=== PATIENT | female | born 1965 | race Caucasian/White ===

== ENCOUNTER 2017-04-03 18:20 | Emergency (ER) | payer OTHER ==
[2017-04-03 18:20] VITALS: BMI 26.1
[2017-04-03 18:26] VITALS: RESP 18; TEMP 99.5
[2017-04-03] MEDS ORDERED: Sodium Chloride 0.9% 1,000 ML IV STA (19:03)
--- NOTE | 2017-04-03 19:28 | ED PDOC ---
HPI: Abdomen Time Seen by Provider: 04/03/17 18:56 Chief Complaint (Nursing): Abdominal Pain Chief Complaint (Provider): Abdominal Pain History Per: Patient History/Exam Limitations: no limitations Onset/Duration Of Symptoms: Days (since last night, 04/02/2017.) Current Symptoms Are (Timing): Still Present Additional Complaint(s): 51 y/o female presents to the emergency department with a complaint of vomiting (non-bloody), diarrhea (non-bloody), and abdominal pain epigastric described as a burning sensation since last night, 04/02/2017. Denies new solids or liquids intake, chest pain, shortness of breath, headache, urinary symptoms, or medications for the relief of pain. Of note, patient was here before with similar symptoms such as anxiety, vomiting , diarrhea, epigastric abdominal pain, body aches, and ingestion of 5-6 pills of sertraline in August 2015 PMD: Dr. Ziyad Casarez MD Past Medical History Reviewed: Historical Data, Nursing Documentation, Vital Signs Vital Signs: Last Vital Signs Temp 99.5 F 04/03/17 18:24 Pulse 98 H 04/03/17 18:24 Resp 18 04/03/17 18:24 BP 137/80 04/03/17 18:24 Pulse Ox - Medical History PMH: Anxiety, Depression, Gastritis Denies: Diabetes, Hepatitis, HIV, HTN, Chronic Kidney Disease, Seizures, Sexually Transmitted Disease - Surgical History Surgical History: Cholecystectomy - Family History Family History: States: Unknown Family Hx - Social History Current smoker - smoking cessation education provided: No Alcohol: None Drugs: Denies - Home Medications Home Medications: Ambulatory Orders Medication Instructions Recorded Prednisone [Deltasone] 20 mg PO Q8 #20 tablet 06/22/16 - Allergies Allergies/Adverse Reactions: Allergies Allergy/AdvReac Type Severity Reaction Status Date / Time No Known Allergies Allergy Verified 04/03/17 18:24 Review of Systems ROS Statement: Except As Marked, All Systems Reviewed And Found Negative Cardiovascular: Negative for: Chest Pain Respiratory: Negative for: Shortness of Breath Gastrointestinal: Positive for: Vomiting, Abdominal Pain (described as burning) , Diarrhea. Negative for: Hematochezia, Hematemesis Genitourinary Female: Negative for: Dysuria, Frequency, Incontinence, Hematuria Neurological: Negative for: Headache Physical Exam - Reviewed Nursing Documentation Reviewed: Yes Vital Signs Reviewed: Yes - Physical Exam Appears: Positive for: Non-toxic, No Acute Distress Head Exam: Positive for: ATRAUMATIC, NORMAL INSPECTION, NORMOCEPHALIC Skin: Positive for: Normal Color, Warm, Dry Eye Exam: Positive for: Normal appearance ENT: Positive for: Normal ENT Inspection Neck: Positive for: Normal, Supple Cardiovascular/Chest: Positive for: Regular Rate, Rhythm. Negative for: Murmur Respiratory: Positive for: Normal Breath Sounds. Negative for: Accessory Muscle Use, Respiratory Distress Gastrointestinal/Abdominal: Positive for: Soft, Tenderness (Mild epigastric tenderness). Negative for: Guarding, Rebound Back: Positive for: Normal Inspection. Negative for: L CVA Tenderness, R CVA Tenderness Extremity: Positive for: Normal ROM. Negative for: Pedal Edema Neurologic/Psych: Positive for: Alert, Oriented - Laboratory Results Result Diagrams: 04/03/17 19:31 04/03/17 19:31 Interpretation Of Abn Labs: no acute - ECG ECG: Positive for: Interpreted By Me, Viewed By Me ECG Rhythm: Positive for: Normal QRS, Normal ST Segment, Sinus Rhythm Interpretation Of Abn EKG: same as old - Progress ED Course And Treament: 2017: Stable. AAOx3. Pain free. Tolerated PO. Active. Fu with pcp. Medical Decision Making Medical Decision Making: Time: 18:56 Initial impression: Abdominal Pain Initial plan: --Electrocardiogram STAT --COMP Metabolic Panel --Lipase STAT --Urine Dip --ED Urine --EKG-ED --CBC w/ differential --Pepcid 20 mg IVP --Sodium Chloride 1,000 ml IV 1,000 mls/hr --Ondansetron 4 mg IV --Reevaluation Scribe Attestation: Documented by Ilda Krueger, acting as a scribe for Chico Montero MD. Provider Scribe Attestation: All medical record entries made by the Scribe were at my direction and personally dictated by me. I have reviewed the chart and agree that the record accurately reflects my personal performance of the history, physical exam, medical decision making, and the department course for this patient. I have also personally directed, reviewed, and agree with the discharge instructions and disposition. Disposition - Clinical Impression Clinical Impression: Abdominal pain - Patient ED Disposition Is Patient to be Admitted: No Counseled Patient/Family Regarding: Studies Performed, Diagnosis, Need For Followup - Disposition Referrals: [facility] [Outside] - 04/06/17 Disposition: Routine/Home Disposition Time: 20:19 Condition: STABLE Additional Instructions: Return if not better in 3 days. Instructions: Acute Abdominal Pain (ED) Print Language: GEORGIAN
[2017-04-03 19:47] LABS: BASO % 0.2 % (0.0-2.0); EOS # 0.1 K/uL (0.0-0.7); EOS % 1.8 % (0.0-4.0); HEMATOCRIT 44.6 % (34.0-47.0); LYMPH # 1.1 K/uL (1.0-4.3); LYMPH % 15.2 % (20.0-40.0); MEAN CELL VOLUME 88.2 fl (81.0-99.0); MEAN CORPUSCULAR HEMOGLOBIN 29.2 pg (27.0-31.0); MEAN CORPUSCULAR HGB CONC 33.1 g/dL (33.0-37.0); MEAN PLATELET VOLUME 7.3 fl (7.2-11.7); MONO # 0.8 K/uL (0.0-0.8); MONO % 10.8 % (0.0-10.0); NEUT # 5.2 K/uL (1.8-7.0); NRBC % 0.1 % (0.0-0.0); RED CELL DISTRIBUTION WIDTH 14.4 % (11.5-14.5); WHITE BLOOD COUNT 7.2 K/uL (4.8-10.8)
[2017-04-03 19:57] LABS: ALB/GLOB RATIO 1.5 (1.0-2.1); ALKALINE PHOSPHATASE 99 U/L (38-126); ALT/SGPT 43 U/L (9-52); AST/SGOT 33 U/L (14-36); BILIRUBIN,TOTAL 0.9 mg/dl (0.2-1.3); BLOOD UREA NITROGEN 20 mg/dl (7-17); CALCIUM 8.7 mg/dL (8.4-10.2); CARBON DIOXIDE 29 mmol/L (22-30); CHLORIDE 100 mmol/L (98-107); GFR AFRICAN-AMERICAN > 60; GLUCOSE,RANDOM 100 mg/dL (65-105); LIPASE 94 U/L (23-300); POTASSIUM 3.8 MMOL/L (3.6-5.0); SODIUM 140 mmol/l (132-148); TOTAL PROTEIN 7.9 G/DL (6.3-8.2)
[2017-04-03 20:40] VITALS: BP 109/69; PULSE 92
--- NOTE | 2017-04-04 10:45 | CARD ---
APPROVED REPORT EKG Measurement Heart [id number] IL [id number] [id number] <Conclusion> Normal sinus rhythm Possible Left atrial enlargement Nonspecific ST abnormality Abnormal ECG
== END 2017-04-03 20:35 | disposition home or self-care (01) ==
LOC: H.ER 18:20
DX: R10.13 Epigastric pain (principal); R11.10 Vomiting, unspecified; R19.7 Diarrhea, unspecified

== ENCOUNTER 2018-07-16 19:08 | Emergency (ER) | payer OTHER ==
[2018-07-16 19:08] VITALS: BMI 26.1
[2018-07-16 20:14] VITALS: RESP 16
[2018-07-16 20:17] VITALS: O2SAT 98
--- NOTE | 2018-07-16 20:28 | ED PDOC ---
HPI: General Adult Time Seen by Provider: 07/16/18 20:21 Chief Complaint (Nursing): Shortness Of Breath Chief Complaint (Provider): left arm pain History Per: Patient (52 y/o female h/o cerebellar infarct here with complaint of left arm pain noted x few days worse with laying flat and moving neck. Notes pain as dull ache generalized but denies and associated chest pain. ) Past Medical History Reviewed: Historical Data, Nursing Documentation, Vital Signs Vital Signs: Last Vital Signs Temp 98.1 F 07/16/18 19:28 Pulse 74 07/16/18 20:17 Resp 16 07/16/18 20:17 BP 124/79 07/16/18 20:17 Pulse Ox 98 07/16/18 20:17 - Medical History PMH: Anxiety, Depression, Gastritis Denies: Diabetes, Hepatitis, HIV, HTN, Chronic Kidney Disease, Seizures, Sexually Transmitted Disease - Surgical History Surgical History: Cholecystectomy - Family History Family History: States: Unknown Family Hx - Home Medications Home Medications: Ambulatory Orders Medication Instructions Recorded Prednisone [Deltasone] 20 mg PO Q8 #20 tablet 06/22/16 Methylprednisolone [Medrol Dose 4 mg PO DAILY #21 mg 07/16/18 Pack (21 tabs)] diaZEpam [Valium] 5 mg PO Q8 PRN #8 tab 07/16/18 - Allergies Allergies/Adverse Reactions: Allergies Allergy/AdvReac Type Severity Reaction Status Date / Time No Known Allergies Allergy Verified 04/03/17 18:24 Review of Systems ROS Statement: Except As Marked, All Systems Reviewed And Found Negative Physical Exam - Reviewed Nursing Documentation Reviewed: Yes Vital Signs Reviewed: Yes - Physical Exam Appears: Positive for: Well, Non-toxic, No Acute Distress Head Exam: Positive for: ATRAUMATIC, NORMAL INSPECTION, NORMOCEPHALIC Skin: Positive for: Normal Color, Warm, DRY Eye Exam: Positive for: EOMI, Normal appearance, PERRL ENT: Positive for: Normal ENT Inspection Neck: Positive for: Normal, Painless ROM Cardiovascular/Chest: Positive for: Regular Rate, Rhythm Respiratory: Positive for: CNT, Normal Breath Sounds Gastrointestinal/Abdominal: Positive for: Normal Exam, Soft Back: Positive for: Normal Inspection, Other (tenderness along left lateral aspect of neck. Pain in arm reproduced with flexion of neck.) Extremity: Positive for: Normal ROM Neurologic/Psych: Positive for: Alert, Oriented - ECG O2 Sat by Pulse Oximetry: 98 - Progress ED Course And Treament: toradol 30 mg IM x 1 dose valium 5 mg po x 1 dose percocet 5/325 mg x 1 dose Disposition - Clinical Impression Clinical Impression: Cervical radiculopathy - Patient ED Disposition Is Patient to be Admitted: No - Disposition Referrals: [facility] [Outside] Disposition: Routine/Home Disposition Time: 21:50 Condition: FAIR Prescriptions: diaZEpam [Valium] 5 mg PO Q8 PRN #8 tab PRN Reason: Pain, Moderate (4-7) Methylprednisolone [Medrol Dose Pack (21 tabs)] 4 mg PO DAILY #21 mg Instructions: Radiculopathy (DC) Forms: [facility] ED School/Work Excuse Print Language: ARMENIAN
[2018-07-16] MEDS ORDERED: Oxycodone/Acetaminophen 5/325 mg Tab PO STA (21:49)
[2018-07-16] MEDS ORDERED: Oxycodone/Acetaminophen 5/325 mg Tab ONE (22:25)
[2018-07-16 23:01] VITALS: BP 119/78; PULSE 64; TEMP 98.7
== END 2018-07-16 22:35 | disposition home or self-care (01) ==
LOC: H.ER 19:08
DX: M54.12 Radiculopathy, cervical region (principal); Z86.73 Personal history of transient ischemic attack (TIA), and cerebral infarction without residual deficits
CPT/HCPCS: 96372; 99285; J1885

== ENCOUNTER 2018-12-04 12:15 | Emergency (ER) | payer SELFPAY ==
[2018-12-04 12:15] VITALS: BMI 26.1
[2018-12-04 12:25] VITALS: BP 127/79; RESP 16; TEMP 98.7; O2SAT 96
[2018-12-04] MEDS ORDERED: Promethazine/Cod 6.25mg-10mg/5ml Syr UD PO STA (12:40)
[2018-12-04] MEDS ORDERED: Albuterol 0.083% Inhal Sol (2.5 mg/3 mL) UD INH STA (12:40)
--- NOTE | 2018-12-04 12:52 | ED PDOC ---
HPI: Chest Pain Time Seen by Provider: 12/04/18 12:27 Chief Complaint (Nursing): Cough, Cold, Congestion Chief Complaint (Provider): Cough, Cold, Congestion History Per: Account Financial Manager (RN: Breanne) History/Exam Limitations: no limitations Onset/Duration Of Symptoms: Days (x3 months) Current Symptoms Are (Timing): Still Present Additional Complaint(s): Philly Landers is a 53 year old female with a past medical history of anxiety, gastritis, and depression, who presents to the emergency department complaining of having a constant cough, onset x3 months. Patient states that she has been drinking lemon tea with john at home for the cough but has had no relief of symptoms. She further reports that yesterday after brushing her teeth, she coughed out thick blood. Due to the longevity of the cough and coughing up blood, she decided to come in to the ED today. She further reports that she has mid sternal chest pain but only when she is coughing. Patient denies seeing her PMD recently. She denies having any history of DVT, PE, recent surgery, prolonged limb immobilzation, hormonal therapy, leg pain, leg swelling, palpitations, fever, chills, or recent travel. PMD: Ziyad Casarez - Risk Factors PE Risk Factors: Neg: Extremity Immobilization/Fx, Decreased Mobilty /Activity, Previous DVT, Previous PE Past Medical History Reviewed: Historical Data, Nursing Documentation, Vital Signs Vital Signs: Last Vital Signs Temp 98.7 F 12/04/18 12:22 Pulse 93 H 12/04/18 12:22 Resp 16 12/04/18 12:22 BP 127/79 12/04/18 12:22 Pulse Ox 96 12/04/18 12:22 - Medical History PMH: Anxiety, Depression, Gastritis Denies: Diabetes, Hepatitis, HIV, HTN, Chronic Kidney Disease, Seizures, Sexually Transmitted Disease - Surgical History Surgical History: Cholecystectomy - Family History Family History: States: No Known Family Hx - Social History Current smoker - smoking cessation education provided: No Ex-Smoker (has not smoked in the last 12 months): No Drugs: Denies - Home Medications Home Medications: Ambulatory Orders Medication Instructions Recorded Prednisone [Deltasone] 20 mg PO Q8 #20 tablet 06/22/16 Methylprednisolone [Medrol Dose 4 mg PO DAILY #21 mg 07/16/18 Pack (21 tabs)] diaZEpam [Valium] 5 mg PO Q8 PRN #8 tab 07/16/18 Albuterol HFA [Ventolin HFA 90 2 puff IH Q4 PRN #120 puff 12/04/18 mcg/actuation (8 g)] Azithromycin [Zithromax] 250 mg PO DAILY #6 tab 12/04/18 Promethazine DM [Phenergan DM 5 - 10 ml PO Q8 PRN #120 ml 12/04/18 Syrup] - Allergies Allergies/Adverse Reactions: Allergies Allergy/AdvReac Type Severity Reaction Status Date / Time No Known Allergies Allergy Verified 12/04/18 12:22 Wells Criteria for PE - Wells Criteria for Pulmonary Embolism Clinical Signs and Symptoms of DVT: No P.E is #1 Diagnosis, or Equally Likely: No Heart Rate >100: No Immobilization at least 3 days;Surgery previous 4 weeks: No Previous, objectively diagnosed PE or DVT: No Hemoptysis: Yes Malignancy w/treatment within 6 months, or palliative: No Total Score: 1 Review of Systems ROS Statement: Except As Marked, All Systems Reviewed And Found Negative Constitutional: Negative for: Fever, Chills Cardiovascular: Positive for: Chest Pain. Negative for: Palpitations Respiratory: Positive for: Cough, Hemoptysis Musculoskeletal: Negative for: Leg Pain (leg swelling) Physical Exam - Reviewed Nursing Documentation Reviewed: Yes Vital Signs Reviewed: Yes - Physical Exam Appears: Positive for: Non-toxic, No Acute Distress Head Exam: Positive for: ATRAUMATIC, NORMOCEPHALIC Skin: Positive for: Normal Color, Warm, Dry Eye Exam: Positive for: Normal appearance, EOMI, PERRL ENT: Positive for: Normal ENT Inspection Neck: Positive for: Normal, Painless ROM, Supple Cardiovascular/Chest: Positive for: Regular Rate, Rhythm. Negative for: Murmur, Tachycardia Respiratory: Positive for: Normal Breath Sounds, Other (Actively coughing). Negative for: Respiratory Distress Gastrointestinal/Abdominal: Positive for: Normal Exam, Soft. Negative for: Tenderness Back: Positive for: Normal Inspection. Negative for: L CVA Tenderness, R CVA Tenderness, Vertebral Tenderness Extremity: Positive for: Normal ROM. Negative for: Pedal Edema, Calf Tenderness (bilaterally) Neurologic/Psych: Positive for: Alert, Oriented. Negative for: Motor/Sensory Deficits - Laboratory Results Result Diagrams: 12/04/18 13:13 12/04/18 13:13 - ECG ECG: Positive for: Interpreted By Me ECG Rhythm: Positive for: Sinus Rhythm. Negative for: ST/T Changes Rate: 90 O2 Sat by Pulse Oximetry: 96 (RA) Pulse Ox Interpretation: Normal - Radiology X-Ray: Interpreted by Me (CXR) X-Ray Interpretation: No Acute Disease - Progress Re-evaluation Time: 13:48 (Reports cough has improved. Chest pain has not returned. Informed of results. Advised to f/u with [facility] for further evaluation but is to return to ED immediately if symptoms worsen.) Condition: Re-examined, Improved Medical Decision Making Medical Decision Making: Time: 1242 Impression: cough Plan: --EKG --CMP --Troponin I --CBC with differential --D dimer --PT/INR --PTT --Chest xray PA&LAT --Albuterol 2.5 mg INH --Phenergan/Codeine Oral Syrup 5 ml PO --IV Insertion --Peak flow pre/post tx PERC score 2 ----- Scribe Attestation: Documented by Bolivar Sparks, acting as a scribe for Jmaes Ernandez Provider Scribe Attestation: All medical record entries made by the Scribe were at my direction and personall y dictated by me. I have reviewed the chart and agree that the record accurately reflects my personal performance of the history, physical exam, medical decision making, and the department course for this patient. I have also personally directed, reviewed, and agree with the discharge instructions and disposition. Disposition - Clinical Impression Clinical Impression: Acute bronchitis - Patient ED Disposition Is Patient to be Admitted: No - Disposition Referrals: [facility] [Outside] Disposition: Routine/Home Disposition Time: 13:50 Condition: IMPROVED Prescriptions: Albuterol HFA [Ventolin HFA 90 mcg/actuation (8 g)] 2 puff IH Q4 PRN #120 puff PRN Reason: Cough or wheezing Azithromycin [Zithromax] 250 mg PO DAILY #6 tab Promethazine DM [Phenergan DM Syrup] 5 - 10 ml PO Q8 PRN #120 ml PRN Reason: Cough Instructions: Acute Bronchitis, Adult (DC) Forms: [employer] (Congolese)
[2018-12-04] MEDS ORDERED: Albuterol 0.083% Inhal Sol (2.5 mg/3 mL) UD ONE (13:01)
[2018-12-04] MEDS ORDERED: Promethazine/Cod 6.25mg-10mg/5ml Syr UD ONE (13:05)
[2018-12-04 13:25] LABS: INR 1.1; PROTHROMBIN TIME 12.2 Seconds (9.8-13.1)
[2018-12-04 13:27] LABS: BASO % 0.2 % (0.0-2.0); EOS # 0.2 K/uL (0.0-0.7); EOS % 2.5 % (0.0-4.0); HEMOGLOBIN 13.8 g/dL (12.0-16.0); MEAN CORPUSCULAR HEMOGLOBIN 30.1 pg (27.0-31.0); MEAN CORPUSCULAR HGB CONC 33.8 g/dL (33.0-37.0); MONO # 0.4 K/uL (0.0-0.8); MONO % 6.6 % (0.0-10.0); NEUT # 3.9 K/uL (1.8-7.0); NEUT % 59.7 % (50.0-75.0); NRBC % 0.1 % (0.0-0.0); PARTIAL THROMBOPLASTIN TIME 37.3 Seconds (25.6-37.1); RBC 4.58 Mil/uL (3.80-5.20); RED CELL DISTRIBUTION WIDTH 14.1 % (11.5-14.5); WHITE BLOOD COUNT 6.5 K/uL (4.8-10.8)
[2018-12-04 13:30] LABS: ALB/GLOB RATIO 1.4 (1.0-2.1); ALBUMIN 4.1 g/dL (3.5-5.0); ALT/SGPT 37 U/L (9-52); AST/SGOT 28 U/L (14-36); BLOOD UREA NITROGEN 15 mg/dl (7-17); CALCIUM 9.5 mg/dL (8.4-10.2); GFR NON-AFRICAN AMERICAN > 60
[2018-12-04 13:40] LABS: D DIMER < 200 ng/mlDDU (0-230)
[2018-12-04 14:30] VITALS: PULSE 90
--- NOTE | 2018-12-05 09:01 | RAD ---
Date of service: 12/04/2018 HISTORY: cough COMPARISON: No prior. TECHNIQUE: Chest PA and lateral FINDINGS: LUNGS: No active pulmonary disease. PLEURA: No significant pleural effusion identified. No pneumothorax apparent. CARDIOVASCULAR: No aortic atherosclerotic calcification present. Normal cardiac size. No pulmonary vascular congestion. OSSEOUS STRUCTURES: No significant abnormalities. VISUALIZED UPPER ABDOMEN: Normal. OTHER FINDINGS: None. IMPRESSION: No active disease.
--- NOTE | 2018-12-05 15:33 | CARD ---
APPROVED REPORT Date of service: 12/04/2018 EKG Measurement Heart [id number] <Conclusion> Normal sinus rhythm Possible Left atrial enlargement Nonspecific ST abnormality Abnormal ECG
== END 2018-12-04 15:15 | disposition home or self-care (01) ==
LOC: H.ER 12:15
DX: J20.9 Acute bronchitis, unspecified (principal); Z79.899 Other long term (current) drug therapy